=== PATIENT | female | born 1985 | race Hispanic/Latino ===

== ENCOUNTER 2017-08-19 10:40 | Emergency (ER) | payer OTHER | END 2017-08-19 11:30 | disposition home or self-care (01) | LOC: EDH 10:40 | DX: M62.838 Other muscle spasm (principal); V49.59XA Passenger injured in collision with other motor vehicles in traffic accident, initial encounter; Y93.89 Activity, other specified; Y92.89 Other specified places as the place of occurrence of the external cause; Y99.8 Other external cause status ==